=== PATIENT | female | born 1950 | race Caucasian/White ===

== ENCOUNTER 2021-06-15 20:03 | Emergency (ER) | payer MEDICAID ==
[~2021-06-15] VITALS: Ht 162.6 cm; Wt 86.4 kg
[2021-06-15 22:56] LABS: BASOPHILS % (AUTO) 0.6 % (0.0-2.0); EOSINOPHILS % (AUTO) 2.3 % (1.0-6.0); HEMATOCRIT 40.1 % (36-46); HEMOGLOBIN 13.7 g/dL (12.0-16.0); LYMPHOCYTES # (AUTO) 3.1 K/uL (1.0-4.8); LYMPHOCYTES % (AUTO) 33.4 % (22.0-44.0); MEAN CORPUSCULAR HGB CONC 34.3 G/dL (31.0-37.0); MEAN CORPUSCULAR VOLUME 87 fL (80-100); MONOCYTES # (AUTO) 0.7 K/uL (0.1-1.0); MONOCYTES % (AUTO) 7.5 % (2.0-9.0); NEUTROPHILS # (AUTO) 5.2 K/uL (1.8-7.7); NEUTROPHILS % (AUTO) 56.2 % (40.0-70.0); PLATELET COUNT (AUTO) 247 K/uL (150-450); RED BLOOD CELL COUNT(AUTO) 4.59 MIL/uL (4.00-5.20)
[2021-06-15 23:12] LABS: CALCIUM, TOTAL 9.6 mg/dL (8.8-10.5); CREATININE 0.93 mg/dL (0.60-1.30); POTASSIUM 4.7 mmol/L (3.5-5.1)
[2021-06-15 23:17] LABS: ALBUMIN 3.7 g/dL (3.4-5.0); BILIRUBIN,TOTAL 0.3 mg/dL (0.1-1.0); TOTAL PROTEIN, SERUM 7.8 g/dL (6.4-8.2)
[2021-06-15] MEDS ORDERED: LIDOCAINE 5% TRANSDERMAL PATCH TD ONE (23:30)
[2021-06-16 00:24] LABS: APPEARANCE,URINE SL CLOUDY (CLEAR); BILIRUBIN,URINE NEGATIVE (NEGATIVE); GLUCOSE, URINE (UA) >=1000 mg/dL (NEGATIVE); KETONES,URINE NEGATIVE (NEGATIVE); LEUKOCYTE ESTERASE ,URINE SMALL (NEGATIVE); OCCULT BLOOD,URINE NEGATIVE (NEGATIVE); PROTEIN,URINE NEGATIVE (NEGATIVE); UROBILINOGEN,URINE 0.2 mg/dL (<=1.0)
[2021-06-16] MEDS ORDERED: INSULIN REGULAR, HUMAN 100 UNITS/ML SQ ONE (00:45)
[2021-06-16] MEDS ORDERED: LIDO700A15 TP (00:46)
[2021-06-16 00:56] LABS: BACTERIA,URINE Many /HPF (None Seen); NITRATE,URINE POSITIVE (NEGATIVE); RBC,URINE 0-2 /HPF (0-2)
[2021-06-16 01:09] VITALS: BP 177/74
== END 2021-06-16 01:27 | disposition home or self-care (01) ==
LOC: EMS 20:10
DX: M62.830 Muscle spasm of back (principal); G89.29 Other chronic pain; M54.9 Dorsalgia, unspecified; M79.672 Pain in left foot; E11.65 Type 2 diabetes mellitus with hyperglycemia; N39.0 Urinary tract infection, site not specified; I10 Essential (primary) hypertension; E11.9 Type 2 diabetes mellitus without complications
CPT/HCPCS: 36415; 80053; 81001; 82948; 83880; 85025; 87086; 96372; 99283; J1815

== ENCOUNTER 2023-07-12 16:49 | Emergency (ER) | payer MEDICAID, OTHER ==
[~2023-07-12] VITALS: Ht 162.6 cm; Wt 83.0 kg
[~2023-07-12 16:49] MED LIST: ACET-3385 PO; ASPI-1451 PO; ASPI81 PO; ATOR40TA71 PO; FURO20 PO; GABA-529 PO; HIGH POTENCY P1 EACH PO; INSLAN SQ; LEVO750T68 PO; LIDO700A15 TP; LOSA-382 PO; METF-1211 PO; METO25 PO; POTA8TAB72 PO; TICA90TA PO
[2023-07-12 17:42] VITALS: TEMP 98.3
[2023-07-12] MEDS ORDERED: TRAM-559 PO (19:34)
[2023-07-12 19:54] VITALS: BP 133/63; PULSE 72; RESP 14
[2023-07-12] MEDS ORDERED: ACET-66 PO (19:58)
[2023-07-12] MEDS ORDERED: ASPI-1444 PO (19:58)
[2023-07-12] MEDS ORDERED: INSU100I15 SQ (19:58)
[2023-07-12] MEDS ORDERED: FURO20TA4 PO (19:58)
[2023-07-12] MEDS ORDERED: NITR0.3T12 SL (19:58)
[2023-07-12] MEDS ORDERED: GABA600T10 PO (19:58)
[2023-07-12] MEDS ORDERED: ISOS10TA16 PO (19:58)
[2023-07-12] MEDS: KETOROLAC TROMETHAMINE 30 MG/ML VIAL IM ONE (20:22)
== END 2023-07-12 20:29 | disposition home or self-care (01) ==
LOC: EMS 16:51
DX: M23.303 Other meniscus derangements, unspecified medial meniscus, right knee (principal); E11.9 Type 2 diabetes mellitus without complications; E78.00 Pure hypercholesterolemia, unspecified; G89.29 Other chronic pain; M54.9 Dorsalgia, unspecified; I25.10 Atherosclerotic heart disease of native coronary artery without angina pectoris; I11.0 Hypertensive heart disease with heart failure; Z98.890 Other specified postprocedural states; Z88.8 Allergy status to other drugs, medicaments and biological substances
CPT/HCPCS: 99283; 29505; 73562; 96372; J1885